=== PATIENT | female | born 1955 | race Two or more races ===

== ENCOUNTER 2024-03-08 09:36 | Emergency (ER) | payer MEDICARE ==
[~2024-03-08] VITALS: Ht 157.5 cm; Wt 61.8 kg
[2024-03-08 09:56] VITALS: TEMP 97.9
[2024-03-08 12:40] VITALS: BP 162/86; PULSE 79; RESP 16; O2SAT 99
== END 2024-03-08 12:41 | disposition home or self-care (01) ==
LOC: ER 09:37
DX: S00.03XA Contusion of scalp, initial encounter (principal); R42 Dizziness and giddiness; W10.9XXA Fall (on) (from) unspecified stairs and steps, initial encounter; Y93.89 Activity, other specified; Y92.89 Other specified places as the place of occurrence of the external cause; Y99.8 Other external cause status
CPT/HCPCS: 70450; 99284